=== PATIENT | female | born 1935 | race Caucasian/White ===

== ENCOUNTER 2017-03-28 16:47 | Outpatient (CLI) | payer MEDICARE, BC ==
[~2017-03-28] VITALS: Ht 177.8 cm; Wt 61.4 kg
--- NOTE | ~2017-03-28 | OP ---
PATIENT NAME: NATE MCKEON MEDICAL RECORD: [id number] :37 LOCATION:D.M2 D.2116 ADMISSION DATE:03/28/17 SURGEON: ERA OCONNELL MD DATE OF OPERATION: 03/29/2017 PROCEDURES: 1. PTCA stent LAD. 2. Left heart catheterization. 3. Selective coronary angiography. 4. Left ventriculogram. 5. Four-vessel carotic and vertebral angiography. INDICATION: Angina and coronary artery disease. PROCEDURE IN DETAIL: After informed consent was obtained and after detailed explanation of risks, benefits as well as alternative therapies, the patient elected to proceed with angiogram and angioplasty. The right femoral area was prepped and draped in normal sterile fashion. The right femoral artery was cannulated via modified Seldinger technique with placement of 6-Nepali sheath. All catheters exchanged through this sheath. FINDINGS: Carotids: There was a subselection of each subclavian as well as the left carotid. RIGHT SIDE: The common internal and external carotids have mild plaquing, none greater than 20%, no flow-limiting stenosis. Vertebral arteries devoid of disease. LEFT SYSTEM: The common internal and external carotids have mild plaquing, none greater than 20%. Vertebral artery has no significant disease. LEFT VENTRICULOGRAM: Was performed in standard 30-degree SAVAGE view, reveals good cardiac wall motion throughout all segments. Overall ejection fraction estimated 60%. SELECTIVE CORONARY ANGIOGRAPHY: 1. Left main showed no significant angiographic disease. 2. Left anterior descending has previously placed stent. There is 80% in-stent restenosis in the mid vessel. 3. The left circumflex has moderate irregularities, but no flow-limiting stenosis. 4. Right coronary has a previously placed stent. This is widely patent with no significant restenosis. No disease elsewise throughout. PTCA STENT OF THE LAD: The stent used is a 2.5 x 18 mm BioFreedom stent. This lesion was a 15-mm lesion and a 2.5 vessel, ANUM 3 flow before and after the intervention. Result was 0% residual stenosis. OVERALL IMPRESSION: Successful percutaneous transluminal coronary angioplasty stent of the left anterior descending going from 80% initial stenosis that was an in-stent restenosis to 0% residual stenosis with advent of ANUM-3 flow. TRANSINT:[id number] Voice Confirmation ID: [id number] DOCUMENT ID: [id number] OPERATIVE REPORT [id number] NATE MCKEON JEFFREY MD CC: [id number] DICTATION DATE: 03/29/171101 [place]: 03/29/171943 ADM IN [place] [id number] [place] [id number]
--- NOTE | ~2017-03-28 | HP ---
PATIENT: NATE NEELY MEDICAL RECORD: [id number] ACCOUNT: [id number] LOCATION:[facility].2116 : 36 ADMISSION DATE: 03/28/17 HISTORY AND PHYSICAL EXAMINATION DIAGNOSES: 1. Unstable angina. 2. Coronary artery disease. 3. Previous percutaneous transluminal coronary angioplasty stent. 4. Hypertension. 5. Hyperlipidemia. HISTORY OF PRESENT ILLNESS: Mrs. Neely has had 1 week of chest pain, chest discomfort compatible with angina just like that of her previous angina. Last cardiac intervention was 2012. Her blood pressure is controlled on lisinopril, hyperlipidemia is on pravastatin. PHYSICAL EXAMINATION: GENERAL APPEARANCE: Well-nourished, well-developed, appears stated age. Level of distress, comfortable. PSYCHIATRIC: Mental status, alert, normal affect. Orientation, oriented to time, place and person. EYES: Lids and conjunctiva, noninjected. No discharge, no pallor. ENT: Lips, teeth, gums, normal dentition. Oropharynx, no cyanosis, no pallor. NECK: Carotid arteries, bilateral normal upstroke, no bruits, no thrills. JUGULAR VEINS: No jugular venous pressure or distention. CERVICAL LYMPH NODES: Nontender, nonenlarged. THYROID: Not enlarged. Nontender. No nodules. LUNGS: Respiratory effort, unlabored. CHEST: Normal curvature. No thoracic deformity. No chest wall tenderness. Percussion, resonant. Auscultation, clear. No wheezes, no rales, no rhonchi. CARDIOVASCULAR: Precordial exam, nondisplaced. No heaves or pericardial thrills. Rate and rhythm, regular. Heart sounds, normal S1, normal S2. No S3, no gallop, no rub. Systolic murmur, not heard. Diastolic murmur, not heard. EXTREMITIES: No cyanosis, no edema. Peripheral pulses, full and equal in all extremities, except as noted. No bruits appreciated. ABDOMEN: Soft, nondistended. Normal aorta. No bruit. Nontender. No masses. Liver, nontender, no hepatomegaly. Spleen, nontender, no splenomegaly. MUSCULOSKELETAL: No joint tenderness. No joint swelling. No erythema. NEUROLOGICAL: Normal gait, normal strength, normal tone. SKIN: Warm and dry. REVIEW OF SYSTEMS: The patient reports easy bruising but reports no swollen glands. The patient reports no fever, no night sweats, no significant weight gain, no significant weight loss. No significant exercise tolerance. The patient reports no dry eyes, no irritation, no vision change. Patient reports no difficulty hearing and no ear pain. Patient reports no frequent nose bleeds or nose and sinus problems. Patient reports on arm pain on exertion. No shortness of breath while lying down. No history of heart murmur. Patient reports no cough, no wheezing or coughing up blood. Patient reports no abdominal pain, no vomiting. Normal appetite. No diarrhea and not vomiting blood. No nausea and no constipation. Patient reports no incontinence. No difficulty urinating. No hematuria. No increased frequency. Patient reports no muscle aches. No weakness, no arthralgias, no back pain. No swelling of the extremities. Patient reports no abnormal mole, no jaundice, no rashes. Reports HISTORY AND PHYSICAL [id number] LINDA,NATE no loss of consciousness. No weakness and no numbness. No seizures, dizziness, or headaches. The patient reports no depression, no sleep disturbance, feeling safe in a relationship and no alcohol abuse. Patient reports on fatigue. Reports no runny nose or sinus pressure. No itching, no hives, and no frequent sneezing. OVERALL IMPRESSION: Angina in a progressive unstable fashion, most likely she has recurrent hemodynamically significant coronary artery disease. We will proceed with coronary angiography. Further care depends upon findings of the angiography. TRANSINT:[id number] Voice Confirmation ID: [id number] DOCUMENT ID: [id number] ERA OCONNELL MD CC: [id number] DICTATION DATE: 03/29/17831 SUPERINTENDENT BUILDING: 03/29/17 0935 [facility] IN [place] [id number] [place] [address]
--- NOTE | ~2017-03-28 | HEMODYNAMI ---
PATIENT:NATE MCKEON MEDICAL RECORD: [id number] : 37 LOCATION:TONY ADMISSION DATE: 03/28/17 Generatedon:04/02/201712:09 Patient name: NATE MCKEON Patient #: [id number] SSN: : 1935 Date of study: 03/29/2017 Page: Of Hemodynamic Procedure Report Patient Data Patient Demographics Procedure consent was obtained First Name: NATE Gender: Female Last Name: LINDA : 1935 Patient #: [id number] Age: 81 year(s) Race: Unknown Additional ID: [id number] Contact details [address]: [address] [place] [address] State: [place] City: [place] Zip code: [address] Past Medical History Allergies Allergen Reaction Date Comments Reported Demerol 10/18/2014 Other allergy 10/18/2014 Phenergan Other allergy 03/29/2017 Phenegan, Demerol Admission Admission Data Admission Date: 03/28/2017 Admission Time: 16:47 Room #: D.2116 Height (in.): 69 BSA: 1.76 (m2) Height (cm.): 175.26 BMI: 20.38 (kg/m2) Weight (lbs.): 138 Weight (kg.): 62.6 Lab Results Lab Result Date: 03/29/2017 Lab Result Time: 0:00 Biochemistry Name Units Result Min Max BUN mg/dl 17 --(---*)-- 7 18 Creatinine mg/dl 1.1 --(--*-)-- 0.6 1.3 CBC Name Units Result Min Max Hemoglobin g/dl 13.7 --(*---)-- 13.5 17.5 Procedure Procedure Types Cath Procedure Diagnostic Procedure LHC LH w/Coronaries Miscellaneous Procedures Moderate Sedation up to 15 minutes Peripheral Cath Diagnostic Procedure 4-Vessel 4 Vessel Carotid Arterio Arch Procedure Description Procedure Date Procedure Date: 03/29/2017 Procedure Start Time: 10:34 Procedure End Time: 10:55 Procedure Staff Name Function Alvin Rice RT Scrub Robert Kaufman RN Nurse Kermit Perez MD Performing Physician Aurora Snyder RT Monitor Procedure Data Cath Procedure Fluoroscopy Diagnostic fluoroscopy Total fluoroscopy Time: 3.5 time: 3.5 min min Diagnostic fluoroscopy Total fluoroscopy dose: 295 dose: 295 mGy mGy Contrast Material Contrast Material Type Amount (ml) Isovue 300 116 Entry Location Entry Primary Successful Side Size Upsize Upsize Entry Closure Succes sful Closure Location (Fr) 1 (Fr) 2 (Fr) Remarks Device Remarks Femoral Right 5 Fr 6 Fr artery Short Estimated blood loss: 10 ml Diagnostic catheters Device Type Used For End Catheter Placement Cordis 5Fr Pigtail Procedure Catheter (MP) Cordis 5Fr JL 4.0 Procedure Catheter (MP) Cordis 5Fr 3DRC Catheter Procedure (MP) Procedure Complications No complications Procedure Medications Medication Administration Route Dosage Benadryl I.V. 50 mg Plavix P.O. 600 mg Oxygen NC 2 l/min Heparin Flush Bag added to field 2 bags (1000units/500ml NS) 0.9% NaCl I.V. 100 ml/hr Fentanyl I.V. 50 mcg Versed I.V. 1 mg Heparin Bolus I.V. 4000 units Integrilin (Bolus I.V. 5.6 ml 2mg/ml) Nitroglycerin IC/IA I.C. 200 mcg Integrilin (Bolus wasted 4.4 ml 2mg/ml) Hemodynamics Rest BSA: 1.76 (m2) HGB: 13.7 (g/dl) O2 Consumption: Estimated: 151.89 (ml/min) O2 Co nsumption indexed: Estimated:86.3 (ml/min/m) Heart Rate: 61 (bpm) Pressure Samples Time Site Value (mmHg) Purpose Heart Use Rate(bpm) 10:35 LV 140/12,9 Snapshot 59 Gradients Valve Time Site Site Mean SEP/DFP Peak To Heart Use 1 2 (mmHg) (sec/min) Peak Rate (mmHg) (bpm) Aortic 10:35 LV AO 60 Snapshots Pre Cath Intra NCS Post Cath Vital Signs Time Heart Resp SPO2 etCO2 ZN3xbsp NIBP (mmHg) Rhythm Pain Sedation Rate (ipm) (%) (mmHg) (mmHg) Status Level (bpm) 10:11:39 56 17 96 0 0 138/68(93) NSR 0 (11) 10(A) , No pain 10:16:57 54 18 96 0 0 162/74(99) NSR 0 (11) 10(A) , No pain 10:21:19 57 17 96 0 0 148/72(93) NSR 0 (11) 10(A) , No pain 10:25:33 58 18 99 0 0 162/76(101) NSR 0 (11) 10(A) , No pain 10:29:55 56 16 100 0 0 147/69(93) NSR 0 (11) 9(A) , No pain 10:34:13 57 16 100 0 0 150/65(92) NSR 0 (11) 9(A) , No pain 10:38:35 57 16 100 0 0 150/58(110) NSR 0 (11) 9(A) , No pain 10:42:57 64 18 99 0 0 131/58(79) NSR 0 (11) 9(A) , No pain 10:47:11 64 17 98 0 0 124/62(93) NSR 0 (11) 9(A) , No pain 10:51:25 58 18 98 0 0 112/53(78) NSR 0 (11) 9(A) , No pain 10:55:33 60 8 99 0 0 124/56(77) NSR 0 (11) 9(A) , No pain Medications Time Medication Route Dose Verified Delivered Reason Notes Effectiveness by by 10:13:19 Benadryl I.V. 50 mg Robert Jones Per physician Mandeep Kaufman RN RN 10:13:29 Plavix P.O. 600 Rboert Jones for mg Mandeep Kaufman RN antiplatelet RN therapy 10:13:41 Oxygen NC 2 Robert Titusy Per physician l/min Mandeep Kaufman RN RN 10:13:50 Heparin Flush added 2 Robert Robert used for Bag to bags Mandeep Kaufman RN procedure (1000units/500ml field RN NS) 10:14:01 0.9% NaCl I.V. 100 Robert Robert Per physician ml/hr Mandeep Kaufman RN RN 10:25:28 Fentanyl I.V. 50 Robert Robert for sedation mcg Mandeep Kaufman RN RN 10:25:35 Versed I.V. 1 mg Robert Robert for sedation Mandeep Kaufman RN RN 10:41:49 Heparin Bolus I.V. 4000 Robert Jones for units Mandeep Kaufman RN anticoagulation RN 10:42:02 Integrilin I.V. 5.6 Robert Jones for (Bolus 2mg/ml) ml Mandeep Kaufman RN antiplatelet RN therapy 10:42:10 Integrilin wasted 4.4 Robert Jones for (Bolus 2mg/ml) ml Mandeep Kaufman RN antiplatelet RN therapy 10:44:36 Nitroglycerin I.C. 200 Robert Jones for IC/IA mcg Mandeep Kaufman RN vasodilation department chair Log Time Note 9:50:42 Alvin Rice RT(R) (CV) sent for patient. Start room use. 10:03:31 Patient Weight : 138 kg 10:03:37 Patient Height : 69 cm 10:05:05 Lab Result : Hemoglobin 13.7 g/dl 10:05:05 Lab Result : Creatinine 1.1 mg/dl 10:05:05 Lab Result : BUN 17 mg/dl 10:05:40 Diagnostic Cath status Elective 10:05:44 Time tracking: Regular hours 10:05:49 Plan of Care:Hemodynamics will remain stable., Cardiac rhythm will remain stable., Comfort level will be maintained., Respiratory function will remain adequate., Patient/ family verbilizes understanding of procedure., Procedure tolerated without complication., Recovers from procedure without complications.. 10:05:56 Patient received from Med II to CCL 2 Alert and oriented. Tansferred to table in Supine position. 10:05:57 Warm blankets applied, and nam hugger turned on for patient comfort. 10:05:58 Correct patient and procedure confirmed by team. 10:06:00 Signed procedure consent form obtained from patient. 10:06:08 H&P Date Dictated: 03/28/2017 Within 30 days and on chart.. 10:06:10 Pre-procedure instructions explained to patient. 10:06:13 Family in waiting room. 10:06:15 Patient NPO since Midnight. 10:06:53 Patient allergic to Other allergyPhenegan, Demerol 10:07:06 Is the patient allergic to Iodine/contrast media? No. 10:07:10 Is patient on blood thinner?Yes 10:07:15 ACC The patient was administered the following blood thiners within the last 24 hours: ACCAspirin, ACCPlavix 10:07:17 Patient diabetic? No. 10:07:22 Snore? Yes 10:07:23 Sleep apnea? Yes 10:07:27 Dentures? Yes ? 10:07:39 Patient pain scale 0/10 ?. 10:07:50 IV patent on arrival in left hand with 0.9% NaCl at [facility]. 10:07:55 Lab results completed and on chart. 10:08:01 Right groin area was prepped with chlora-prep and draped in sterile fashion 10:08:02 Alarms reviewed by Osman Kruger 10:08:12 Physician paged 10:08:21 IV Extension Set opened to sterile field. 10:08:24 Use device set Femoral Dx 10:08:26 Bag Decanter opened to sterile field. 10:08:26 Acist Syringe opened to sterile field. 10:08:27 Terumo 5Fr Piedmont Sheath opened to sterile field. 10:08:27 Medline Cath Pack opened to sterile field. 10:08:28 St Cody 260cm J .035 wire opened to sterile field. 10:08:30 Acist Hand Control opened to sterile field. 10:08:31 Diagnostic Infinity 5Fr Multipack catheter opened to sterile field. 10:08:31 Acist Manifold opened to sterile field. 10:08:32 Tegaderm 4 x 4 opened to sterile field. 10:10:20 ECG and BP/O2 sat monitors applied to patient. 10:10:25 Vital chart was started 10:10:28 Baseline sample Acquired. 10:10:30 Full Disclosure recording started 10:13:19 Benadryl 50 mg I.V. was administered by Robert Kaufman RN; Per physician; 10:13:29 Plavix 600 mg P.O. was administered by Robert Kaufman RN; for antiplatelet therapy; 10:13:41 Oxygen 2 l/min NC was administered by Robert Kaufman RN; Per physician; 10:13:50 Heparin Flush Bag (1000units/500ml NS) 2 bags added to field was administered by Robert Kaufman RN; used for procedure; 10:14:01 0.9% NaCl 100 ml/hr I.V. was administered by Robert Kaufman RN; Per physician; 10:19:21 Physician arrived 10:22:48 Zero performed for pressure channel P1 10:24:54 --------ALL STOP TIME OUT------ 10::55 Final Timeout: patient, procedure, and site verified with staff and physician. All members of the team are in agreement. 10:24:58 Right groin site verified by team. 10:25:02 Sedation plan: IV Moderate Sedation Versed, Fentanyl 10:25:28 Fentanyl 50 mcg I.V. was administered by Robert Kaufman RN; for sedation; 10:25:35 Versed 1 mg I.V. was administered by Robert Kaufman RN; for sedation; 10:32:22 Procedure started. 10:34:00 Local anesthetic to right femoral artery with Lidocaine 2% by Kermit Perez MD.INITIAL ACCESS ONLY 10:35:49 A 5 Fr sheath was inserted into the Right Femoral artery 10:36:15 A Cordis 5Fr Pigtail Catheter (MP) was advanced over the wire and used for Procedure. 10:36:35 EF : 55 % 10:36:39 Catheter removed. 10:36:50 A Cordis 5Fr JL 4.0 Catheter (MP) was advanced over the wire and used for Procedure. 10:37:52 Catheter removed. 10:38:01 A Cordis 5Fr 3DRC Catheter (MP) was advanced over the wire and used for Procedure. 10:38:43 Catheter removed. 10:38:47 [place] Whisper J 300cm 0.014 guide wire opened to sterile field. 10:38:47 Terumo 6Fr Piedmont Sheath opened to sterile field. 10:38:48 I-Shake BasixCompak Inflation Kit opened to sterile field. 10:38:58 Cordis 6FR XBLAD 3.5 guide catheter opened to sterile field. 10:39:23 Sheath upsized to a 6 Fr Short. 10:39:36 6 Fr XBLAD guide catheter was inserted over the wire 10:39:38 Wire advanced across lesion. 10:39:56 Wire advanced across lesion. 10:41:49 Heparin Bolus 4000 units I.V. was administered by Robert Kaufman RN; for anticoagulation; 10:42:02 Integrilin (Bolus 2mg/ml) 5.6 ml I.V. was administered by Robert Kaufman RN; for antiplatelet therapy; 10:42:10 Integrilin (Bolus 2mg/ml) 4.4 ml wasted was administered by Robert Kaufman RN; for antiplatelet therapy; 10:42:31 Stent expires 06/04/17 10:42:58 Inflation Number: 1 A Biofreedom 2.5 x 18 stent (No Cost Implant) was prepped and advanced across the Mid LAD. The stent was deployed at 15 YAO for 0:00 (min:sec). 10:44:36 Nitroglycerin IC/IA 200 mcg I.C. was administered by Robert Kaufman RN; for vasodilation; 10:45:54 Wire removed. 10:45:56 Guide catheter removed. 10:47:05 3DRC advanced for 4 vessel 10:47:15 Left carotid angiography performed. 10:47:18 Right carotid angiography performed. 10:47:49 Cordis 6Fr Exoseal opened to sterile field. 10:48:19 Catheter removed. 10:48:27 Procedure ended.(Physican Out) 10:48:52 Fluoroscopy time 03.50 minutes. 10:49:02 Fluoroscopy dose: 295 mGy 10:49:02 Flurop Dose total: 295 10:49:06 Contrast amount:Isovue 300 116ml. 10:49:15 Sharps counted by scrub and verified by R.N. 10:49:28 Insertion/operative site no bleeding no hematoma. 10:50:53 Post-op/insertion site Right Femoral artery dressed using a 4 x 4 and Tegaderm. 10:50:55 Post Procedure Pulses reassessed and unchanged 10:51:02 Post-procedure physical assessment completed. ASA score P 2 - A patient with mild systemic disease as per Kermit Perez MD. 10:51:05 Post procedure rhythm: unchanged. 10:51:08 Estimated blood loss: 10 ml 10:51:10 Post procedure instruction explained to patient.Patient verbalizes understanding. 10:51:25 Procedure type changed to Cath procedure, Diagnostic procedure, LHC, LHC w/Coronaries, Miscellaneous Procedures, Moderate Sedation up to 15 minutes, Peripheral Cath Diagnostic Procedure, 4-Vessel, 4 Vessel Carotid Arterio Arch 10:51:28 Procedure and supply charges have been captured, reviewed, submitted and are correct. 10:54:33 expiraion 06-04-2017 10:54:57 Procedure Complication : No complications 10:55:00 Vital chart was stopped 10:55:01 See physician's report for complete and final results. 10:55:[address] [facility]. 10:55:[address] [facility] with Bed. 10:55:19 Full Disclosure recording stopped 10:55:19 Procedure ended. 10:55:26 ACC-PCI Only Patient was given prescriptions, or instructed by Kermit Perez MD to start/continue the following medications upon discharge: Plavix 10:55:28 End room use (Document Last) Intervention Summary Intervention Notes Time ActionType Lesion and Equipment Action# Pressure Duration Attributes Used 10:42:58 Place stent Mid LAD Biofreedom 1 15 00:00 2.5 x 18 stent (No Cost Implant) Device Usage Item Name Manufacture Quantity Catalog Hospital Part Current Minimal Lot# / Number Charge Number Stock Stock Serial# Code IV [facility] 1 91376-24 [id number] 86446 [id number] 5 Extension Set Acist Acist 1 51243 807685 127712 580831 20 Syringe Medical Systems Inc Bag Microtek 1 2002S 162834 67200 877225 5 Dec[employer]ia Inc. Medline Cardinal 1 [id number] 885427 08062 059831 5 Cath Pack Health Terumo 5Fr Terumo 1 [id number] 387140 497073 879072 [address] Cody 1 033925 686717 612851 789927 30 260cm J .035 wire Acist Hand Acist 1 07562 858416 056889 000549 5 Control Medical Systems Inc Acist Acist 1 47074 173516 807836 591709 5 Drugstore[employer] Inc Diagnostic Cardinal 1 [id number] 201885 25190 012710 30 Infinity Health 5Fr Multipack catheter Tegaderm 4 3M 1 1626W 938950 903361 000668 5 x 4 Cordis 5Fr Cardinal 1 574760 5 Pigtail Health Catheter (MP) Cordis 5Fr Cardinal 1 769318 5 JL 4.0 Health Catheter (MP) Cordis 5Fr Cardinal 1 314615 5 3DRC Health Catheter (MP) Terumo 6Fr Terumo 1 FEV759 966753 341271 577947 40 Piedmont Sheath [place] 1 [id number] 970201 639415 666889 5 Whisper J Vascular 300cm 0.014 guide wire Merit Merit 1 [id number] 039744 634254 124204 15 [employer] Medical Inflation Kit Cordis 6FR Cardinal 1 [id number] 701876 738659 082401 10 XBLAD 3.5 Health guide catheter Biofreedom Biosensors 1 [facility]2-8208 051082 486723 5 [id number] 2.5 x 18 [place] SA stent (No Cost Implant) Cordis 6Fr Cardinal 1 EX600 752256 196386 714026 10 [facility] TeraFirrma Signature Audit [place] Stage Time Signature Unsigned Intra-Procedure 03/29/2017 Aurora Snyder 10:56:04 AM RT(R) RT(R) 03/29/2017 11:00:58 AM Intra-Procedure 03/29/2017 Aurora Snyder 11:16:29 AM RT(R) RT(R) 04/02/2017 12:07:55 PM Intra-Procedure 04/02/2017 Aurora Snyder 12:09:46 PM RT(R) Signatures Monitor : Aurora Snyder Signature : RT Date : Time : [address] [place] [address]
[~2017-03-28 16:47] MED LIST: ASPIRIN EC81 M1 PO; IMDUR60 MG PO; LANOXIN125 MCG PO; LIPITOR80 MG PO; LISINOPRIL10 MG PO; MULTIPLE VITAMI1 TA1 PO; NEURONTIN 300300 MG PO; PLAVIX75 MG PO; VITAMIN C1000 MG PO; VITAMIN D3400 UNI1 PO; ZANAFLEX4 MG PO
--- NOTE | 2017-03-28 17:22 | NUR ---
TRANSFER FROM ADMISSIONS BY W/C. OREINTED TO ROOM. CALL LIGHT IN REACH. WILL CONT. PLAN OF CARE.
[2017-03-28] MEDS ORDERED: PRAVASTATIN SOD10 MG PO (17:40)
[2017-03-28] MEDS ORDERED: HYDROCHLOROTHIA25 MG PO (17:43)
[2017-03-28 17:48] VITALS: BP 131/67; Ht 177.8 cm; Wt 61.4 kg
[2017-03-28 19:37] LABS: BASOPHILS 0.5 % (0-2); EOSINOPHILS 1.2 % (0-7); HEMATOCRIT 41.6 % (36.0-48.0); HEMOGLOBIN 13.7 g/dL (12-16); LYMPHOCYTES 35.3 % (15-50); MCH 31.4 pg (26.0-34.0); MCHC 32.9 g/dL (31.0-37.0); MCV 95.4 fL (80.0-100.0); MONOCYTES 8.6 % (2-11); NEUTROPHILS 54.4 % (40-80); PLATELET COUNT 143 10x3/uL (130-400); RBC 4.36 10x6/uL (4.00-5.40); RDW 13.3 % (11.5-14.5); WBC 4.3 10x3/uL (4.8-10.8)
--- NOTE | 2017-03-28 19:37 | NUR ---
RESUMED CARE OF PT, LYING IN BED RESPIRATIONS EVEN AND UNLABORED ON ROOM AIR. RIGHT AC SALINE LOCKED. 65 SR ON TELEMETRY. PLAN OF CARE DISCUSSED. NPO AT MIDNIGHT. CALL LIGHT IN REACH. WILL CONTINUE TO MONITOR. SEE NURSE ASSESSMENT.
[2017-03-28 20:12] LABS: ANION GAP 6.7 mmol/L (8-16); CALCIUM 8.7 mg/dL (8.5-10.1); CARBON DIOXIDE 34.4 mmol/L (21.0-32.0); CREATININE - SERUM 1.1 mg/dL (0.6-1.3); POTASSIUM - SERUM 3.1 mmol/L (3.5-5.1)
[2017-03-28 21:16] VITALS: BP 107/47
[2017-03-29] VITALS: BP 118/53
--- NOTE | 2017-03-29 03:11 | NUR ---
LYING IN BED WITH EYES CLOSED, CALL LIGHT IN REACH. WILL CONTINUE TO MONITOR.
[2017-03-29 04:35] VITALS: BP 128/61
[2017-03-29 08:00] VITALS: BP 129/91
--- NOTE | 2017-03-29 09:58 | NUR ---
TELEMETRY SR. LEAVING FOR SUPERVISOR FACEPIECE LINE BY BED. WILL CONT. PLAN OF CARE.
--- NOTE | 2017-03-29 11:18 | NUR ---
BACK FROM STEAM DISTRIBUTION SUPERVISOR. VS WNL. RIGHT GROIN STABLE WITHOUT BLEEDING OR HEMATOMA NOTED. WILL MONITOR.
[2017-03-29] MEDS ORDERED: PLAVIX75 MG PO (11:32)
[2017-03-29 14:44] VITALS: BP 131/67
--- NOTE | 2017-03-29 15:15 | NUR ---
BED REST UP. GROIN STABLE.
[2017-03-29 19:00] VITALS: BP 153/64
--- NOTE | 2017-03-29 22:41 | NUR ---
INITIAL ROUNDS COMPLETED AT 1910 HRS. PT DENIED ANY DISCOMFORT. ASESSMENT COMPLETED AT 2010 HRS. VSS. SR PER CM HR 61. IV TO R AC SL. IV SITE CLEAN, DRY AND INTACT. LUNGS DIMINISHED IN BASES BILAT. R GROIN INCISION CLEAN, DRY AND INTACT. NO SWELLING, BRUSISNG OR BLEEDING NOTED. PM MEDS GIVEN. PT CURRENTLY DOING A CROSSWORD. DENIES ANY DISCOMFORT. SR UP X2, CALL LIGHT WITHIN REACH.
[2017-03-30] VITALS: BP 119/50
--- NOTE | 2017-03-30 00:06 | NUR ---
MINIMAL BRUISING NOTED TO R GROIN. PT DENIES AN DISCOMFORT. PALPABEL R PEDAL PULSES. WILL CONTINUE TO MONITOR. SR UP X2, CALL LIGHT WITHIN REACH.
--- NOTE | 2017-03-30 01:54 | NUR ---
PT RESTING WITH EYES CLOSED. RESP EVEN AND REGULAR. SR UP X2, CALL LIGHT WITHIN REACH.
[2017-03-30 04:00] VITALS: BP 135/71
--- NOTE | 2017-03-30 04:27 | NUR ---
NO CHANGE TO R GROIN NOTED. PT RESTING WITH EYES CLOSED. RESP EVEN AND REGULAR. SR UP X2, CALL LIGHT WITHIN REACH.
--- NOTE | 2017-03-30 05:44 | NUR ---
VSS THROUGHOUT NIGHT. SR PER CM. PT DENIED ANY DISCOMFORT. NEEDS MET; WILL CONTINUE TO MONITOR.
--- NOTE | 2017-03-30 07:30 | NUR ---
RECEIVED PT IN ROOM AAOX4 RESP UNLABORED SR ON TELEMETRY DENIES ANY NEEDS OR DISCOMFORT NAD NOTED
--- NOTE | 2017-03-30 09:15 | NUR ---
REVIEWED DISCHARGE INSTRUCTIONS WITH PT STATES UNDERSTANDING COPY GIVEN DCD SALINE LOCK TO RAC WITH 18 GA IV CATH INTACT SITE FREE OF REDNESS OR EDEMA PT DISCHARGED HOME LEFT UNIT WITH ALL PERSONAL BELONGINS IN STABLE CONDITION VIA W/C
== END 2017-03-30 09:15 | disposition home or self-care (01) ==
LOC: OBSVTIME → D.OPS 16:47 → D.M2 16:47 → UNDOADMOB 16:47 → OBSVTIME 16:47 → EDSTATUS 03-29 12:30 → D.M2 03-30 09:15 → D.OPS 03-30 09:15 → D.M2 03-30 09:15
PROVIDERS: Internal Medicine Interventional Cardiology
DX: I25.110 Atherosclerotic heart disease of native coronary artery with unstable angina pectoris (principal); I10 Essential (primary) hypertension; E78.5 Hyperlipidemia, unspecified; Z95.5 Presence of coronary angioplasty implant and graft; Z01.810 Encounter for preprocedural cardiovascular examination; Z01.812 Encounter for preprocedural laboratory examination; Z00.6 Encounter for examination for normal comparison and control in clinical research program
CPT/HCPCS: 93458; 36225; 36222; C9600

== ENCOUNTER 2017-04-29 17:30 | Observation (INO) | payer MEDICARE, BC ==
[~2017-04-29] VITALS: Ht 177.8 cm; Wt 64.1 kg
--- NOTE | ~2017-04-29 | HEMODYNAMI ---
PATIENT:NATE MCKEON MEDICAL RECORD: [id number] : 37 LOCATION:[facility] D.2120 ADMISSION DATE: 04/29/17 Generatedon:04/30/201712:25 Patient name: NATE MCKEON Patient #: [id number] SSN: : 1935 Date of study: 04/30/2017 Page: Of Hemodynamic Procedure Report Patient Data Patient Demographics Procedure consent was obtained First Name: NATE Gender: Female Last Name: LINDA : 1935 Patient #: [id number] Age: 81 year(s) Race: Unknown Additional ID: [id number] Contact details [address]: [address] [place] [address] State: [place] City: [place] Zip code: [address] Past Medical History Allergies Allergen Reaction Date Comments Reported Demerol 10/18/2014 Other allergy 10/18/2014 Phenergan Other allergy 03/29/2017 Phenegan, Demerol Demerol 04/30/2017 Other allergy 04/30/2017 Phenergan Admission Admission Data Admission Date: 04/29/2017 Admission Time: 21:54 Room #: 2120 Lab Results Lab Result Date: 04/30/2017 Lab Result Time: 0:00 Biochemistry Name Units Result Min Max Creatinine mg/dl 0.9 --(-*--)-- 0.6 1.3 CBC Name Units Result Min Max Hemoglobin g/dl 13.5 --(*---)-- 13.5 17.5 Procedure Procedure Types Cath Procedure Diagnostic Procedure LHC LHC w/Coronaries Miscellaneous Procedures Moderate Sedation up to 15 minutes Procedure Description Procedure Date Procedure Date: 04/30/2017 Procedure Start Time: 12:15 Procedure End Time: 12:25 Procedure Staff Name Function Kermit Perez MD Performing Physician Klarissa Camara RT Scrub Erick Cunha RT Scrub Nasir Isaac RN Nurse Vannesa Worrell RT Monitor Procedure Data Cath Procedure Fluoroscopy Diagnostic fluoroscopy Total fluoroscopy Time: 1.4 time: 1.4 min min Diagnostic fluoroscopy Total fluoroscopy dose: 397 dose: 397 mGy mGy Contrast Material Contrast Material Type Amount (ml) Isovue 300 46 Entry Location Entry Primary Successful Side Size Upsize Upsize Entry Closure Membreno ccessful Closure Location (Fr) 1 (Fr) 2 (Fr) Remarks Device Remarks Radial Right 6 Fr Mechanical artery Short Compression Estimated blood loss: 5 ml Diagnostic catheters Device Type Used For End Catheter Placement Diagnostic Terumo 5Fr LV Angiography [place] 110cm catheter Diagnostic Terumo 5Fr Left Coronary [place] 110cm catheter Angiography Diagnostic Terumo 5Fr Right Coronary [place] 110cm catheter Angiography Procedure Complications No complications Procedure Medications Medication Administration Route Dosage 0.9% NaCl I.V. 100 ml/hr Oxygen NC 2 l/min Heparin Flush Bag added to field 2 bags (1000units/500ml NS) Lidocaine 2% added to field 20 Versed I.V. 0.5 mg Fentanyl I.V. 25 mcg Radial Cocktail added to field 1 syringe (Verapomil 2mg/Nitro 400mcg/Heparin 1500units) Radial Cocktail I.A. 1 syringe (Verapomil 2mg/Nitro 400mcg/Heparin 1500units) Hemodynamics Rest HGB: 13.5 (g/dl) Heart Rate: 56 (bpm) Snapshots Pre Cath Intra NCS Post Cath Vital Signs Time Heart Resp SPO2 etCO2 [id number] NIBP Rhythm Pain Sedation Rate (ipm) (%) (mmHg) (mmHg) (mmHg) Status Level (bpm) 12:03:28 52 16 100 0 0 154/70(97) NSR 0 (11) 10(A) , No pain 12:07:44 52 16 100 0 0 157/62(92) NSR 0 (11) 10(A) , No pain 12:11:56 52 16 99 0 0 132/60(79) NSR 0 (11) 10(A) , No pain 12:16:12 57 16 98 0 0 125/57(84) NSR 0 (11) 9(A) , No pain 12:20:18 62 14 98 0 0 116/61(84) NSR 0 (11) 9(A) , No pain 12:24:29 59 10 98 0 0 111/57(72) NSR 0 (11) 9(A) , No pain Medications Time Medication Route Dose Verified Delivered Reason Notes Effectiveness by by 12:02:52 0.9% NaCl I.V. 100 Nasir Nasir Per ml/hr Poncho Isaac physician RN RN 12:03:04 Oxygen NC 2 l/min Nasir Nasir Per Poncho Iasac physician RN RN 12:03:19 Heparin Flush added 2 bags Nasir Nasir used for Bag to Lorigan Poncho procedure (1000units/500ml RN RN NS) 12:03:34 Lidocaine 2% added 20ml Nasir Nasir used for to vial Lorigan Lorigan procedure field RN RN 12:09:12 Versed I.V. 0.5 mg Nasir Nasir for sedation Poncho Isaac RN RN 12:09:27 Fentanyl I.V. 25 mcg Nasir Nasir for sedation Poncho Isaac RN RN 12:13:32 Radial Cocktail added 1 Nasir Nasir used for (Verapomil to syringe Lorigan Poncho procedure 2mg/Nitro field TAVARES RN 400mcg/Heparin 1500units) 12:16:50 Radial Cocktail I.A. 1 Nasir Kermit for (Verapomil syringe Lorigan Ana MD vasodilation 2mg/Nitro RN 400mcg/Heparin 1500units) Procedure Log Time Note 11:42:30 Vannesa Counts RT(R) sent for patient. Start room use. 11:42:31 Time tracking: Regular hours 11:42:34 Plan of Care:Hemodynamics will remain stable., Cardiac rhythm will remain stable., Comfort level will be maintained., Respiratory function will remain adequate., Patient/ family verbilizes understanding of procedure., Procedure tolerated without complication., Recovers from procedure without complications.. 11:56:49 Patient received from PCU to CCL 1 Alert and oriented. Tansferred to table in Supine position. 11:56:50 Warm blankets applied, and nam hugger turned on for patient comfort. 11:56:51 Correct patient and procedure confirmed by team. 11:56:53 Signed procedure consent form obtained from patient. 11:56:53 ECG and BP/O2 sat monitors applied to patient. 12:02:17 Vital chart was started 12:02:19 Baseline sample Acquired. 12:02:52 0.9% NaCl 100 ml/hr I.V. was administered by Nasir Isaac RN; Per physician; 12:03:04 Oxygen 2 l/min NC was administered by Nasir Isaac RN; Per physician; 12:03:19 Heparin Flush Bag (1000units/500ml NS) 2 bags added to field was administered by Nasir Isaac RN; used for procedure; 12:03:34 Lidocaine 2% 20ml vial added to field was administered by Nasir Isaac RN; used for procedure; 12:05:42 Baseline sample Acquired. 12:05:45 Rhythm: sinus bradycardia 12:05:47 Full Disclosure recording started 12:06:03 H&P Date Dictated: 04/30/2017 Within 30 days and on chart.. 12:06:04 Pre-procedure instructions explained to patient. 12:06:04 Pre-op teaching completed and patient verbalized understanding. 12:06:05 Family in waiting room. 12:06:07 Patient NPO since Midnight. 12:06:14 Patient allergic to Demerol 12:06:27 Patient allergic to Other allergyPhenergan 12:06:46 Is the patient allergic to Iodine/contrast media? Yes. 12:07:02 Is patient on blood thinner?Yes 12:07:04 ACC The patient was administered the following blood thiners within the last 24 hours: ACCPlavix 12:07:05 Patient diabetic? No. 12:07:09 Previous problem with sedation/anesthesia? No ? 12:07:10 Snore? No 12:07:11 Sleep apnea? No 12:07:12 Deviated septum? No 12:07:13 Opens mouth fully? Yes 12:07:13 Sticks out tongue? Yes 12:07:15 Airway obstruction? No ? 12:07:18 Dentures? Yes In 12:07:21 Pre procedure: right dorsailis pedis pulse 2+ Normal; easily identifiable; not easily obliterated 12:07:25 Modified Jaron's test Ulnar < 7 seconds 12:07:27 Patient pain scale 0/10 ?. 12:07:33 IV patent on arrival in left antecubital with 0.9% NaCl at [facility]. 12:08:16 Lab Result : Creatinine 0.9 mg/dl 12:08:16 Lab Result : Hemoglobin 13.5 g/dl 12:08:19 Lab results completed and on chart. 12:08:23 Right Radial & Right Groin area was prepped with chlora-prep and draped in sterile fashion 12:08:24 Alarms reviewed by R. N. 12:08: Sharps counted by scrub and verified by R.N. 12:08: Final Timeout: patient, procedure, and site verified with staff and physician. All members of the team are in agreement. 12:08:28 Right Radial site verified by team. 12:08:31 Physical assessment completed. ASA score P 2 - A patient with mild systemic disease as per Kermit Perez MD. 12:08:34 Sedation plan: IV Moderate Sedation Versed, Fentanyl 12:08:38 Use device set Radial Dx 12:08:41 Acist Syringe opened to sterile field. 12:08:44 Medline Cath Pack opened to sterile field. 12:08:45 Bag Decanter opened to sterile field. 12:08:45 Terumo 6Fr Slender Glidesheath opened to sterile field. 12:08:46 St [place] 260cm J .035 wire opened to sterile field. 12:08:46 Acist Hand Control opened to sterile field. 12:08:47 Acist Manifold opened to sterile field. 12:08:48 Tegaderm 4 x 4 opened to sterile field. 12:08:48 MBrace Wrist Support opened to sterile field. 12:09:12 Versed 0.5 mg I.V. was administered by Nasir Isaac RN; for sedation; 12:09:27 Fentanyl 25 mcg I.V. was administered by Nasir Isaac RN; for sedation; 12:10:28 Zero performed for pressure channel P1 12:13:32 Radial Cocktail (Verapomil 2mg/Nitro 400mcg/Heparin 1500units) 1 syringe added to field was administered by Nasir Isaac RN; used for procedure; 12:15:22 Procedure started. 12:15:27 Local anesthetic to right radial artery with Lidocaine 2% by Kermit Perez MD.INITIAL ACCESS ONLY 12:15:40 A 6 Fr Short sheath was inserted into the Right Radial artery 12:16:16 A Diagnostic Terumo 5Fr [place] 110cm catheter was advanced over the wire and used for LV Angiography. 12:16:50 Radial Cocktail (Verapomil 2mg/Nitro 400mcg/Heparin 1500units) 1 syringe I.A. was administered by Kermit Perez MD; for vasodilation; 12:17:11 LV gram done using SAVAGE 12:17:15 Injector settings: Ml/sec: 5, Volume: 15, 12:17:20 EF : 55 % 12:17:28 A Diagnostic Terumo 5Fr [place] 110cm catheter was advanced over the wire and used for Left Coronary Angiography. 12:19:52 A Diagnostic Terumo 5Fr [place] 110cm catheter was advanced over the wire and used for Right Coronary Angiography. 12:20:00 Catheter removed. 12:20:59 Sheath removed intact; hemostasis achieved with Mechanical Compression to the Right Radial artery. 12:21:02 Procedure ended.(Physican Out) 12::23 Fluoroscopy time 01.40 minutes. 12:: Fluoroscopy dose: 397 mGy 12:: Flurop Dose total: 397 12::48 Contrast amount:Isovue 300 46ml. 12:21:50 Sharps counted by scrub and verified by R.N. 12::55 TR band inflated with 10cc of air. 12:22:02 Insertion/operative site no bleeding no hematoma. 12:22:08 Post right radial artery:stable, clean and dry 12:22:09 Post Procedure Pulses reassessed and unchanged 12:22:12 Post-procedure physical assessment completed. ASA score P 2 - A patient with mild systemic disease as per Kermit Perez MD. 12:22:15 Post procedure rhythm: unchanged. 12:22:18 Estimated blood loss: 5 ml 12:22:20 Post procedure instruction explained to patient.Patient verbalizes understanding. 12:22:20 Patient needs reinforcement of post procedure teaching. 12:22:34 Procedure type changed to Cath procedure, Diagnostic procedure, LHC, LHC w/Coronaries, Miscellaneous Procedures, Moderate Sedation up to 15 minutes 12:22:39 Procedure Complication : No complications 12:22:41 See physician's report for complete and final results. 12:23:14 Terumo TR Band Standard opened to sterile field. 12:24:02 Procedure and supply charges have been captured, reviewed, submitted and are correct. 12:24:49 Vital chart was stopped 12::52 Report given to PCU. 12:24:55 Patient transfered to PCU with Bed. 12:25:05 Procedure ended. 12:25:05 Full Disclosure recording stopped 12:25:09 End room use (Document Last) Device Usage Item Name Manufacture Quantity Catalog Hospital Part Current Minimal Lot# / Number Charge Number Stock Stock Serial# Code Acist Acist 1 29033 368346 [id number] [id number] 20 Syringe Medical Systems Inc Medline Cardinal 1 [id number] 823443 36962 450758 5 Cath Pack Health Bag Microtek 1 2002S 930342 11790 336334 5 Decanter [employer] Inc. Terumo 6Fr Terumo 1 [id number] 687742 456570 857902 [address] St Cody 1 685053 688286 642220 188586 30 260cm J .035 wire Acist Hand Acist 1 00794 386009 125623 368215 5 Control Medical Systems Inc Acist Acist 1 01391 061392 847292 899941 5 Manifold Medical Systems Inc Tegaderm 4 3M 1 1626W 484304 844075 559492 5 x 4 MBrace Advanced 1 140-0250-00 192073 70115 779324 5 Wrist Vascular Support Dynamics Diagnostic Terumo 1 10-8233 051367 085974 122950 5 Terumo 5Fr [place] 110cm catheter Terumo TR Terumo 1 [id number] 697555 442586 290498 40 Band Standard Signature Audit [place] Stage Time Signature Unsigned Intra-Procedure 04/30/2017 Vannesa 12:25:21 PM Counts RT(R) Signatures Monitor : Vannesa Signature : Counts RT Date : Time : [facility] [address] [place] [address]
[~2017-04-29 17:30] MED LIST changes: +HYDROCHLOROTHIA25 MG PO; +PRAVASTATIN SOD10 MG PO
[2017-04-29 18:20] LABS: BASOPHILS 0.4 % (0-2); EOSINOPHILS 1.1 % (0-7); HEMATOCRIT 40.5 % (36.0-48.0); HEMOGLOBIN 13.5 g/dL (12-16); MCH 31.7 pg (26.0-34.0); MCHC 33.3 g/dL (31.0-37.0); MCV 95.1 fL (80.0-100.0); MEAN PLATELET VOLUME 10.4 fL (7.4-10.4); MONOCYTES 8.8 % (2-11); NEUTROPHILS 55.7 % (40-80); PLATELET COUNT 149 10x3/uL (130-400); RBC 4.26 10x6/uL (4.00-5.40); RDW 13.1 % (11.5-14.5); WBC 4.7 10x3/uL (4.8-10.8)
[2017-04-29 18:38] LABS: ALBUMIN 3.8 g/dL (3.4-5.0); ALKALINE PHOSPHATASE 62 U/L (46-116); ALT (SGPT) 30 U/L (10-68); CALC OSMOLALITY 293 mosm/kg (275-300); CALCIUM 9.6 mg/dL (8.5-10.1); CARBON DIOXIDE 31.4 mmol/L (21.0-32.0); CHLORIDE - SERUM 107 mmol/L (98-107); CREATININE - SERUM 0.9 mg/dL (0.6-1.3); GLUCOSE 109 mg/dL (74-106); POTASSIUM - SERUM 3.1 mmol/L (3.5-5.1); PROTEIN - SERUM 6.7 g/dL (6.4-8.2); SODIUM 147 mmol/L (136-145); UREA NITROGEN 14 mg/dL (7-18); eGFR NON AFRICAN AMERICAN 64 mL/min (90-120)
[2017-04-29 18:46] LABS: CHOLESTEROL, TOTAL 190 mg/dL (0-200); CKMB 2.5 U/L (0.0-3.6); CREATINE KINASE 169 UL (21-215); HDL CHOLESTEROL 64 mg/dL (32-96); LDL CHOLESTEROL 88 mg/dL (0-100); LDL-HDL RATIO 1.4 ratio (1.5-3.5); TRIGLYCERIDE 191 mg/dL (30-200); TROPONIN-I < 0.017 ng/mL (0.000-0.060)
--- NOTE | 2017-04-29 22:49 | NUR ---
NOTIFIED BY SAGAR WHITFIELD RN FROM ER THAT MORPHINE HAD JUST BEEN ADMINISTERED FOR C/O PAIN.
--- NOTE | 2017-04-29 22:50 | NUR ---
RECIEVED TO ROOM 2119 FROM E.R., PT A&O. RESPERATIONS EVEN ON O2 AT 2 LITER VIA NC. VITALS STABLE. PLACED ON TELEMETRY, 63 SR WITH A 1ST DEGREE BLOCK PER MT. IV TO LEFT AC SL, SITE CLEAN AND DRY. SANDWHICH TRAY AND FRESH ICE WATER GIVEN. DAUGHTER AT BED SIDE, BED LOW, CL IN REACH, WILL CONT TO MONITOR.
[2017-04-29] MEDS ORDERED: ISOSORBIDE MONO60 M1 PO (23:02)
[2017-04-29] MEDS ORDERED: ALEVE220 MG PO (23:03)
[2017-04-30] VITALS: BP 127/88
--- NOTE | 2017-04-30 02:13 | NUR ---
RESTING WITH EYES CLOSED, RESPERATIONS EVEN, NO S/S DISTRESS NOTED.
[2017-04-30 02:17] VITALS: Ht 177.8 cm; Wt 64.1 kg
--- NOTE | 2017-04-30 02:53 | NUR ---
CALL LIGHT IN REACH, WILL CONTINUE WITH PLAN OF CARE.
[2017-04-30 04:00] VITALS: BP 121/59
--- NOTE | 2017-04-30 07:20 | NUR ---
REPORT RECIEVED. PT RESTING QUIELTY, RR EVEN AND UNLABORED. ASSESSMENT PERFORMED. PT DENIES CHEST PAIN, REPORTS A SORE NECK. FAMILY AT BEDSIDE. INTRODUCED SELF AND PLACED NAME ON WHITE BOARD, WILL CTM.
[2017-04-30 08:00] VITALS: BP 132/68
[2017-04-30 08:44] LABS: CALC OSMOLALITY 290 mosm/kg (275-300); CALCIUM 8.7 mg/dL (8.5-10.1); CARBON DIOXIDE 30.5 mmol/L (21.0-32.0); CHLORIDE - SERUM 107 mmol/L (98-107); CREATININE - SERUM 0.9 mg/dL (0.6-1.3); GLUCOSE 98 mg/dL (74-106); SODIUM 145 mmol/L (136-145); UREA NITROGEN 17 mg/dL (7-18); eGFR NON AFRICAN AMERICAN 64 mL/min (90-120)
[2017-04-30 08:52] LABS: POTASSIUM - SERUM 3.6 mmol/L (3.5-5.1); TROPONIN-I < 0.017 ng/mL (0.000-0.060)
[2017-04-30 08:59] LABS: BASOPHILS 0.7 % (0-2); HEMATOCRIT 42.8 % (36.0-48.0); LYMPHOCYTES 41.5 % (15-50); MCH 31.6 pg (26.0-34.0); MCHC 32.7 g/dL (31.0-37.0); MCV 96.6 fL (80.0-100.0); MEAN PLATELET VOLUME 10.8 fL (7.4-10.4); MONOCYTES 9.5 % (2-11); NEUTROPHILS 46.3 % (40-80); PLATELET COUNT 132 10x3/uL (130-400); RBC 4.43 10x6/uL (4.00-5.40); RDW 13.3 % (11.5-14.5)
[2017-04-30 12:00] VITALS: BP 130/62
--- NOTE | 2017-04-30 12:40 | NUR ---
PT RECIEVED TO ROOM FROM PROCEDURE. RIGHT WRIST TR BAND ON PT, SITE CDI. VSS, PT DENIES NEEDS, SLEEP, EASY TO AROUSE. FAMILY AT BEDSIDE, PT ON FREQUENT VS, WILL CTM.
--- NOTE | 2017-04-30 13:42 | NUR ---
REMOVED 5MLS OF AIR FROM THE TR BAND. VSS, PT SITTING UP EATING LUNCH, WILL CTM. RR EVEN AND UNLABORED.
--- NOTE | 2017-04-30 14:39 | NUR ---
REMOVED FINAL 5MLS OF AIR FROM TR BAND ON RIGHT WRIST. APPLIED 4X4 AND TEGADERM TO SITE, SECURED TIGHTLY WITH TAPE. VSS SINCE PROCEDURE, WILL CTM. FAMILY AT BEDSIDE.
--- NOTE | 2017-04-30 16:30 | NUR ---
PT DISCHARGED. RIGHT WRIST DRESSING CDI, VSS SINCE HEART CATH. DISCHARGE INSTRUCTIONS PROVIDED TO FAMILY AND PT, BOTH VERBALIZED UNDERSTANDING. COVERING MACHINE OPERATOR REMOVED AND RETURNED TO DOCTOR OF AUDIOLOGY. PT WILL BE GOING HOME WITH FAMILY IN PERSONAL VEHICHLE. WILL BE TAKEN DOWNSTAIRS VIA WHEELCHAIR.
--- NOTE | 2017-05-02 12:22 | OP ---
PATIENT NAME: NATE MCKEON MEDICAL RECORD: [id number] :37 LOCATION:D.M2 D.2120 ADMISSION DATE:04/29/17 SURGEON: ERA OCONNELL MD DATE OF OPERATION: 04/30/2017 PROCEDURES: 1. Left heart catheterization. 2. Selective coronary angiography. 3. Left ventriculogram. INDICATIONS: Chest pain compatible with angina, coronary artery disease, and previous cardiac stenting. PROCEDURE IN DETAIL: After informed consent was obtained and after detailed explanation of risks, benefits as well as alternative therapies, the patient elected to proceed with angiogram and heart catheterization. The right radial area was prepped and draped in normal sterile fashion. The right radial artery was cannulated via modified Seldinger technique with placement of 5-Kyrgyz sheath. All catheters exchanged through this sheath. FINDINGS: The left ventriculogram was performed in standard 30-degree SAVAGE view, reveals preserved cardiac wall motion, ejection fraction 60%. SELECTIVE CORONARY ANGIOGRAPHY: 1. Left main showed no significant angiographic disease. 2. Left anterior descending has previously placed stents that are widely patent with no significant restenosis. No disease elsewise throughout the LAD or its branches. 3. Left circumflex has mild irregularities, but no flow-limiting stenosis. 4. The right coronary has previously placed stent. This is widely patent with no significant restenosis. No disease elsewise throughout the RCA or its branches. OVERALL IMPRESSION: No significant restenosis of the previously placed stents. No disease elsewise. Continue medical management of the coronary artery disease and cardiac risk factors. TRANSINT:[id number] Voice Confirmation ID: [id number] DOCUMENT ID: [id number] ERA OCONNELL MD at 1222 CC: [id number] DICTATION DATE: 04/30/17 1228 FINANCIAL ANALYSIS MANAGER: 04/30/17 1906 DIS IN 04/30/17 [facility] [address] [place] [address]
--- NOTE | 2017-05-02 12:22 | DS ---
PATIENT:NATE NEELY :37 MEDICAL RECORD: [id number] DISCHARGE SUMMARY ADMISSION DATE: 04/29/17 DISCHARGE DATE: 04/30/17 DIAGNOSES: 1. Noncardiac chest pain. 2. Coronary artery disease. 3. Previous percutaneous transluminal coronary angioplasty stent. 4. Hypertension. HISTORY OF PRESENT ILLNESS: Mrs. Neely presents with noncardiac chest pain. She has had this even prior to her last stenting; it is clearly from her left shoulder. Her chest pain persisted. She did undergo cardiac catheterization revealing no significant restenosis. No disease elsewise. This chest pain is noncardiac. No change in her chest pain from prior to the last stent, no other treatment is necessary. They will seek treatment for musculoskeletal chest pain from their primary care physician. TRANSINT:[id number] Voice Confirmation ID: [id number] DOCUMENT ID: [id number] ERA OCONNELL MD at 1222 CC: [id number] DICTATION DATE: 04/30/17 1259 TREE TAPPING LABORER: 05/01/17 0045 DIS IN 04/30/17 [facility] [address] [place] [address]
== END 2017-04-30 16:30 | disposition home or self-care (01) ==
LOC: D.ER 17:30 → OBSVTIME 21:54 → D.M2 21:54
PROVIDERS: Emergency Medicine; Internal Medicine Interventional Cardiology; ADMIT Family Medicine Adult Medicine
DX: R07.89 Other chest pain (principal); M25.512 Pain in left shoulder; I25.10 Atherosclerotic heart disease of native coronary artery without angina pectoris; Z95.5 Presence of coronary angioplasty implant and graft; E78.5 Hyperlipidemia, unspecified; G62.9 Polyneuropathy, unspecified; K21.9 Gastro-esophageal reflux disease without esophagitis; I10 Essential (primary) hypertension

== ENCOUNTER → 2019-05-25 09:06 | Outpatient (CLI) | payer MEDICARE, BC ==
[~2019-05-25 09:06] MED LIST changes: +ALEVE220 MG PO; +ISOSORBIDE MONO60 M1 PO
--- NOTE | 2019-05-28 13:30 | ST ---
PATIENT:NATE MCKEON MEDICAL RECORD: [id number] SEX: F LOCATION:[facility] ORDER #: ADMISSION DATE: 05/25/19 AGE OF PATIENT: 83 REFERRING PHYSICIAN: INTERPRETING PHYSICIAN: ERA OCONNELL MD DATE OF SERVICE: 05/25/2019 INDICATIONS: Angina and coronary artery disease, shortness of breath, hypertension, hyperlipidemia. She was exercised on standard Lexiscan protocol with 31 mCi of sestamibi injected at peak stress, 10 mCi was used previously for rest images. FINDINGS: Gated SPECT reveals preserved ejection fraction at 68% with good wall motion and thickening and brightening throughout all segments. SPECT imaging Cardiolite was used as myocardial fusion agent. There is homogeneous uptake throughout all segments at rest and stress with no evidence of inducible ischemia or previous infarction. OVERALL IMPRESSION: 1. This is a normal nuclear stress test with no evidence of inducible ischemia or previous infarction. 2. Gated SPECT reveals a preserved ejection fraction at 68%. In this patient with ongoing symptomatology, the current scan does not suggest the presence of hemodynamically significant coronary artery disease. Evaluate noncardiac etiology of chest pain. TRANSINT:[id number] Voice Confirmation ID: [id number] DOCUMENT ID: [id number] ERA OCONNELL MD at 1330 CC: [id number] DICTATION DATE: 05/26/19 1224 SOLAR ELECTRIC PRACTITIONER: 05/27/19 0635 [facility] CLI 05/25/19 [facility] [address] [place] [address]
== END | disposition home or self-care (01) ==
LOC: D.HCCARDIO 09:06
PROVIDERS: ATTEND Internal Medicine Interventional Cardiology
DX: I25.10 Atherosclerotic heart disease of native coronary artery without angina pectoris (principal)